=== PATIENT | male | born 1995 | race Caucasian/White ===

== ENCOUNTER 2021-09-14 14:15 | Emergency (ER) | payer SELFPAY ==
[2021-09-14 15:59] LABS: ACETAMINOPHEN <2.0 ug/mL; BLOOD UREA NITROGEN,BUN 13 mg/dL (7.0-18.0); CARBON DIOXIDE,CO2 24.4 mmol/L (21.0-32.0); CHLORIDE,CL 99 mmol/L (98-107); GLUCOSE RANDOM 132 mg/dL (74-106); POTASSIUM,K 3.2 mmol/L (3.5-5.1); SODIUM,NA 133 mmol/L (136-148)
[2021-09-14 16:00] LABS: ESTIMATED GFR > 60.0 ml/min
== END 2021-09-15 10:25 ==
LOC: MW.ED 14:15
DX: R45.851 Suicidal ideations (principal); Z20.822 Contact with and (suspected) exposure to COVID-19
CPT/HCPCS: 36415; 80053; 80143; 80179; 80305-QW; 80307; 81001; 83735; 84439; 84443; 84481; 85025; 96372; 99282; 99284; U0002